=== PATIENT | female | born 1940 | race Caucasian/White ===

== ENCOUNTER 2019-10-09 16:29 | Inpatient (IN) | payer BC, MEDICARE ==
--- NOTE | 2019-10-09 16:59 | ED ---
Altered Mental Status - HPI Summary HPI Summary: This pt is a 79 Y/O F presenting to [facility] with a CC of weakness that began this morning. She states that she fell 3 times prior to arrival and states that her R leg has been giving out for the past 2 years. She states that she slid on the floors of her house which she reports are unusually slick. She states that she was unable to life herself up on the third fall. She reports that she gets lightheaded and has chest palpitations with associated SOB. She states that her symptoms arent constant. She does report that she has pain in her R hip that has been intermittent for a couple of years. She also states a cough that is brought on by allergies that began 2 years ago. Pt denies any fever, chills, erythema of eyes, sore throat, abdominal pain, N/V, dysuria, hematuria, myalgia , edema, rash, or dizziness. She states that she has no known aggravating or alleviating factors and reports that her mother of a heart attack when she was 69. - History Of Current Complaint Chief Complaint: EDWeakness Stated Complaint: LEG WEAKNESS, AND AFIB PER EMS Time Seen by Provider: 10/09/19 16:53 Hx Obtained From: Patient Last Known Well Date: 10/08/2019 Onset/Duration: Unknown, Still Present Timing: Constant Severity Initially: Moderate Severity Currently: Moderate Character: Lethargy Aggravating Factor(s): Unknown Alleviating Factor(s): Unknown Associated Signs And Symptoms: Positive: Negative - fever, chills, erythema of eyes, sore throat, abdominal pain, N/V, dysuria, hematuria, myalgia, edema, rash , or dizziness., Weakness. Negative: Nausea, Vomiting, Fever - Allergies/Home Medications Allergies/Adverse Reactions: Allergies Allergy/AdvReac Type Severity Reaction Status Date / Time No Known Allergies Allergy See Comment Verified 10/09/19 16:44 Home Medications: Home Medications Hydrochlorothiazide TAB* [Hydrodiuril TAB*] 25 mg PO DAILY 10/09/19 [History Confirmed 10/09/19] Omeprazole (Nf) [Prilosec (NF)] 40 mg PO DAILY 10/09/19 [History Confirmed 10/08] Valsartan TAB* [Diovan TAB*] 320 mg PO DAILY 10/09/19 [History Confirmed ] PMH/Surg Hx/FS Hx/Imm Hx Previously Healthy: Yes Endocrine/Hematology History: Denies: Hx Diabetes Cardiovascular History: Denies: Hx Hypertension, Hx Myocardial Infarction Infectious Disease History: No Infectious Disease History: Denies: Traveled Outside the [place] in Last 30 Days - Family History Known Family History: Positive: Cardiac Disease - mother - Social History Occupation: Retired Lives: With Family Alcohol Use: None Hx Substance Use: No Substance Use Type: Reports: None Hx Tobacco Use: No Smoking Status (MU): Never Smoked Tobacco Review of Systems Negative: Fever, Chills Negative: Erythema Negative: Sore Throat Positive: Palpitations, Chest Pain Positive: Shortness Of Breath, Cough Negative: Abdominal Pain, Vomiting, Nausea Negative: dysuria, hematuria Positive: Other - R hip pain . Negative: Myalgia, Edema Neurological/Mental Status: Negative - Dizziness All Other Systems Reviewed And Are Negative: Yes Physical Exam Triage Information Reviewed: No Vital Signs On Initial Exam: Initial Vitals Temp Pulse Resp BP Pulse Ox 98.8 F 106 17 191/121 97 10/09/19 16:32 10/09/19 16:32 10/09/19 16:32 10/09/19 16:32 10/09/19 16:32 Vital Signs Reviewed: No Procedures - Sedation Patient Received Moderate/Deep Sedation with Procedure: No Diagnostics - Vital Signs Vital Signs Temp Pulse Resp BP Pulse Ox 10/09/19 16:49 113 25 192/98 97 10/09/19 16:44 103 20 191/121 97 10/09/19 16:42 8 10/09/19 16:32 98.8 F 106 17 191/121 97 - Laboratory Result Diagrams: 10/09/19 17:46 10/09/19 17:40 Lab Statement: Any lab studies that have been ordered have been reviewed, and results considered in the medical decision making process. - CT Brain CT CT Interpretation Completed By: Radiologist Summary of CT Findings: Chronic findings as described above without CT apparent acute intracranial abnormality. ED physician has reviewed this report. - EKG 1810 Cardiac Rate: NL - 94 BPM EKG Rhythm: Sinus Rhythm ST Segment: Normal Ectopy: None Summary of EKG Findings: Normal sinus rhythm at 94 bpm, normal NE, normal QRS, normal QTc, normal axis, normal ST, normal T-waves, normal EKG. Interpreted by Dr. Santoyo at 1813 10/09/2019. Altered Mental Statu Course/Dx - Course Course Of Treatment: This pt is a 79 Y/O F presenting to [facility] with a CC of weakness that began this morning. She states that she fell 3 times prior to arrival and states that her R leg has been giving out for the past 2 years. She states that she slid on the floors of her house which she reports are unusually slick. She states that she was unable to life herself up on the third fall. She reports that she gets lightheaded and has chest palpitations with associated SOB. She states that her symptoms arent constant. She does report that she has pain in her R hip that has been intermittent for a couple of years. She also states a cough that is brought on by allergies that began 2 years ago. Her PE found that she her R leg was weaker than her L and drifted before a 5 second count. The pt's daughter was contacted and she stated that her mother has had issues with pojecting accurate time frames to providers in the past. Her daughter also stated that she was attempting to have the pt evaluated for mental status changes for the past couple months without good effect. EKG at 1810 found a Normal sinus rhythm at 94 bpm, normal NE, normal QRS, normal QTc, normal axis, normal ST, normal T-waves, normal EKG. Interpreted by Dr. aSntoyo at 1813 10/09/2019. Pt's troponin is a .15. She will be admitted by Dr. Nicolas to [facility] with a Dx of Elevated troponin, leg weakness, AMS, and frequent falls. - Diagnoses Provider Diagnoses: Frequent falls, AMS (altered mental status), Leg weakness, Elevated troponin - Provider Notifications Discussed Care Of Patient With: Craig Nicolas Time Discussed With Above Provider: 21:05 Instructed by Provider To: Admit As Inpatient Admit/Transition Orders Completed By ED Provider: Yes Discharge ED - Sign-Out/Discharge Documenting (check all that apply): Patient Departure - admitted - Discharge Plan Condition: Good Disposition: ADMITTED TO [facility] Referrals: Melvin Mai MD [Primary Care Provider] - - Attestation Statements Document Initiated by Scribe: Yes Documenting Scribe: Bud Donovan Provider For Whom Scribe is Documenting (Include Credential): Himanshu Santoyo MD Scribe Attestation: Bud Luna, scribed for Himanshu Santoyo MD on 10/09/19 at 2054. Status of Scribe Document: Ready
[2019-10-09 17:55] LABS: ABS Basophils 0.1 10^3/ul (0-0.2); ABS Lymphocytes 1.3 10^3/ul (1.0-4.8); ABS Monocytes 0.7 10^3/ul (0-0.8); ABS Neutrophils 12.2 10^3/ul (1.5-7.7); Eosinophil % 0.1 %; Hematocrit 44 % (35-47); Hemoglobin 15.3 g/dL (12.0-16.0); Lymphocyte % 8.9 %; Mean Corpuscular HGB Conc 35 g/dL (31-36); Mean Corpuscular Hemoglobin 30 pg (27-31); Mean Corpuscular Volume 87 fL (80-97); Mean Platelet Volume 7.8 fL (7.4-10.4); Nucleated Red Blood Cells % 0.1; Platelet Count 297 10^3/uL (150-450); Red Blood Count 5.08 10^6 /uL (3.70-4.87); Red Cell Distribution Width 15 % (10-15); White Blood Count 14.2 10^3/uL (3.5-10.8)
[2019-10-09 18:11] LABS: ALT 28 U/L (7-52); AST 27 U/L (13-39); Albumin 4.3 g/dL (3.2-5.2); Albumin/Globulin Ratio 1.3 (1-3); Alkaline Phosphatase 82 U/L (34-104); Anion Gap 9 mmol/L (2-11); BUN/Creatinine Ratio 21.2 (8-20); Blood Urea Nitrogen 21 mg/dL (6-24); CO2 Carbon Dioxide 25 mmol/L (22-32); Calcium 11.2 mg/dL (8.6-10.3); Chloride 101 mmol/L (101-111); EGFR African American 65.5 (>60); EGFR Non-African American 54.1 (>60); Globulin 3.3 g/dL (2-4); Glucose 112 mg/dL (70-100); Magnesium 1.9 mg/dL (1.9-2.7); Potassium 3.8 mmol/L (3.5-5.0); Sodium 135 mmol/L (135-145); Total Protein 7.6 g/dL (6.4-8.9)
[2019-10-09 18:16] LABS: Troponin I 0.15 ng/mL (<0.03)
[2019-10-09 18:33] LABS: TSH (Thyroid Stimulating Horm) 2.55 mcIU/mL (0.34-5.60)
[2019-10-09] MEDS ORDERED: Iodixanol* (CONTRAST) 320 MG/ML 100 ML SDV IV ONE (18:34)
[2019-10-09] MEDS ORDERED: Atorvastatin* 80 MG TAB PO ONE (22:24)
[2019-10-10 00:18] LABS: Troponin I 0.91 ng/mL (<0.03)
[2019-10-10] MEDS ORDERED: Metoprolol Tartrate TAB* 25 MG PO ONE (00:32)
[2019-10-10] MEDS ORDERED: Aspirin 81 mg CHEW TAB* 81 MG TAB.CHEW PO ONE (00:58)
[2019-10-10 01:52] LABS: Troponin I 0.93 ng/mL (<0.03)
[2019-10-10] MEDS: Enoxaparin(*) 40 MG/0.4 ML SYR SUBCUT SCH ×2 (02:23→21:09)
[2019-10-10 05:27] LABS: ABS Basophils 0.1 10^3/ul (0-0.2); ABS Eosinophils 0.1 10^3/ul (0-0.6); ABS Lymphocytes 2.3 10^3/ul (1.0-4.8); ABS Monocytes 0.6 10^3/ul (0-0.8); ABS Neutrophils 7.4 10^3/ul (1.5-7.7); Eosinophil % 0.6 %; Hematocrit 42 % (35-47); Hemoglobin 14.4 g/dL (12.0-16.0); Lymphocyte % 21.7 %; Mean Corpuscular HGB Conc 34 g/dL (31-36); Mean Corpuscular Hemoglobin 30 pg (27-31); Mean Corpuscular Volume 87 fL (80-97); Mean Platelet Volume 7.5 fL (7.4-10.4); Nucleated Red Blood Cells % 0.1; Platelet Count 301 10^3/uL (150-450); Red Blood Count 4.81 10^6 /uL (3.70-4.87); Red Cell Distribution Width 15 % (10-15); White Blood Count 10.5 10^3/uL (3.5-10.8)
[2019-10-10 05:44] LABS: Anion Gap 7 mmol/L (2-11); Blood Urea Nitrogen 20 mg/dL (6-24); CO2 Carbon Dioxide 24 mmol/L (22-32); Calcium 10.9 mg/dL (8.6-10.3); Chloride 104 mmol/L (101-111); EGFR African American 72.2 (>60); EGFR Non-African American 59.6 (>60); Glucose 111 mg/dL (70-100); Potassium 3.6 mmol/L (3.5-5.0); Sodium 135 mmol/L (135-145)
[2019-10-10 05:50] LABS: Troponin I 0.99 ng/mL (<0.03)
[2019-10-10] MEDS ORDERED: Gadoteridol* (CONTRAST) 279.3 MG/ML 10 ML IV ONE (10:31)
[2019-10-10] MEDS: Valsartan TAB* 160 MG PO SCH (11:10)
[2019-10-10] MEDS: Aspirin 81 mg CHEW TAB* 81 MG TAB.CHEW PO SCH (11:10)
[2019-10-10] MEDS: Hydrochlorothiazide TAB* 25 MG PO SCH (11:10)
[2019-10-10] MEDS: Metoprolol Tartrate TAB* 25 MG PO SCH ×2 (11:11→20:43)
[2019-10-10] MEDS: Pantoprazole TAB * 40 MG TAB PO SCH (11:12)
[2019-10-10 12:24] LABS: Troponin I 0.65 ng/mL (<0.03)
--- NOTE | 2019-10-10 12:46 | HP ---
HISTORY AND PHYSICAL: DATE OF ADMISSION: 10/09/19 HISTORY OF PRESENT ILLNESS: This is a 79-year-old female presenting to the ED with chief complaint of weakness that began this morning and history of frequent falls. She also had a complaint that her right side has been giving out for the past 2 years. She stated that she fell on the floor of her house, which she reports was unusual, but she said it was a mechanical fall that she did not pass out and did not hit her head, but when she did fall, she was unable to lift her head up. She reported lightheadedness and chest palpitations with associated shortness of breath. They said the symptoms they are not constant and was transient. She states she ambulates with a walker at home and a cane but chose not to use it and that was why she fell. She stated that the right upper extremity and right lower extremity have been weak and sensation on this side was not the same as on the left side. It was somewhat diminished on the right. She denied drooling. Denied tingling sensation. Denied a headache, diplopia, fever, sore throat, hematuria, myalgia, or rash. There is no known aggravating factor, no alleviating factor. PAST MEDICAL HISTORY: Hypertension. PAST SURGICAL HISTORY: Cholecystectomy. HOME MEDICATIONS: Include: 1. Diovan 320 mg p.o. daily. 2. Hydrochlorothiazide 25 mg p.o. daily. ALLERGIES: No known drug allergies. FAMILY HISTORY: Mom had hypertension. Dad of lung cancer. Brother also has lung cancer. SOCIAL HISTORY: She quit smoking over 3 years ago. Rarely drinks alcohol. Denied use of illicit drugs. 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 REVIEW OF SYSTEMS: Negative for fever, chills, erythema. Negative sore throat. Positive chest pain or palpitations. Positive shortness of breath and cough. Negative abdominal pain, vomiting, nausea. Negative dysuria, hematuria. Positive right hip pain. Negative myalgia and edema. Neurological Status: Negative dizziness. The patient denied chest pain during my review of systems. PHYSICAL EXAMINATION GENERAL: Alert, awake. She does not appear to be in any acute distress. VITALS: Temperature 98.8, pulse 106, respiratory rate 17, blood pressure 191/ 121, it was initial in the ER. When I examined her, her BP was 149/77, oxygen saturation rate was 96, respiratory rate 15, heart rate 86. HEENT: Head atraumatic, normocephalic. Eyes: Extraocular muscles intact. Sclerae anicteric, not pale. Oral mucosa appears to be moist. No oropharyngeal erythema. NECK: Supple with no JVD. No thyromegaly. No lymphadenopathy. Normal range of motion. LUNGS: Clear to auscultation bilaterally. No wheezes, rales, or rhonchi. CARDIAC: Heart sounds S1, S2 heard with regular rate and rhythm and ejection systolic murmur. There were no rubs, no gallops. ABDOMEN: Soft, nontender, nondistended. Bowel sounds present in all 4 quadrants. EXTREMITIES: She is moving all 4 extremities with strength 5/5 on the left upper and lower extremities and 4/5 on the right upper and lower extremities. Sensation intact left upper and lower extremity and somewhat diminished on the right lower extremity. NEUROLOGIC: She is awake, she is alert. She knows she is in the hospital. She is not confused. Tongue is midline. Speech is clear. SKIN: Intact, dry, warm. No rashes. DIAGNOSTIC STUDIES/LAB DATA: Hematology: WBC 14.2, hemoglobin 15.3, hematocrit 44, platelet 297. Chemistry: Sodium 135, potassium 3.8, chloride 101, bicarb 25, BUN 21, creatinine 0.99, glucose 101.2, calcium 11.2, magnesium 1.9. Total bilirubin 0.5, AST 27, ALT 28, alkaline phosphatase 82. Troponin 0.15. Total protein 7.6, albumin 4.3, globulin 3.3. TSH 2.55. Lactic acid 1.7. Repeat troponin 0.91. Clinical Practice Consultant was informed. He advised to start the patient on baby aspirin and low-dose statins in view of no history of chest pain and no acute EKG changes. CT findings: The only finding with our CT, apparent acute intracranial abnormality. EKG: Normal sinus rhythm and 94 beats per minute. Normal MS, normal QRS, normal QT, normal axis, normal ST, and normal T waves. ASSESSMENT AND PLAN: The patient is a 79-year-old female presenting with chief complaint of weakness and frequent falls as well as right-sided weakness, which have been ongoing for the past 2 years and shortness of breath. The patient will be admitted to the medical floor telemetry unit. For the shortness of breath and weakness, the patient started on oxygen therapy in the ER. Shortness of breath resolved. We will monitor cardiac enzymes. Cardiology consult. For elevated troponin, as above we will trend troponin. Nitro paste per protocol with chest pain. For right-sided weakness, I believe this patient might have had stroke in the past without knowing it. CT study revealed no acute intracranial abnormality. I will request for MRI and Neurology consult. We will start the patient on statin to prevent secondary stroke. The patient may also benefit from SSRI to improve motor function and for anxiety and depression associated with stroke. For hypertension, the patient will continue on home meds with holding parameters. We will monitor electrolytes, BMP, repeat electrolytes, and fluids as needed. Follow up Cardiology. Code status, full code. DVT prophylaxis, Lovenox. GI prophylaxis, PPI. TIME SPENT: Time spent on this admission 60 minutes, greater than half of that time was spent [id number] with the patient obtaining my history and physical. The other half of the time was spent going over the plan of care with the patient and implementing plan of care. Thank you very much for the opportunity to partake in the healthcare needs of this epi lady. [id number]/CPS #: [id number] ANDRAE
--- NOTE | 2019-10-10 15:14 | CONS ---
CC: Hospitalist Service; Dr. Garg CARDIOLOGY CONSULT: DATE OF CONSULT: 10/10/19 HISTORY OF PRESENT ILLNESS: I was asked by Hospitalist Service to see this 79-year- old female patie nt who presented to the emergency room by the ambulance team after she had a few days weakness in her right upper and lower extremities. The cardiology consult was further requested as the patient init ially was noticed to have mildly elevated troponin at 0.15 and then it did peak at 0.99 and then alth ough all through the patient was chest pain free. The patient had no history of coronary artery dise ase, no history of myocardial infarction, and cardiology consult was further requested. Of notice, t he patient did get a CTA of the head that was done on 10/09/19 and that was reported to have no acute findings. However, the patient was seen by Neurology and did have a brain MRI, it was just done actu ally yesterday and the findings are consistent with 3 acute foci of infarction involving the left bas al ganglia and subcortical white matter tracts of the left temporal lobe, so, there was an acute infa rction, there was no bleed. The patient gives no history of fever, no chills, no nausea, no vomiting, no hematochezia, no skin ra sh, no abdominal pain, no palpitation, no tachycardia, no syncope. She had been having some weakness for a few days and she had been falling actually in the house. She gives no double vision, no diplo marietta, no sore throat, no hematuria or myalgia. PAST MEDICAL HISTORY: Includes: 1. Systemic arterial hypertension. 2. Hyperlipidemia. PAST SURGICAL HISTORY: Includes cholecystectomy. MEDICATIONS: As an outpatient include: 1. Diovan 320 mg daily. 2. Hydrochlorothiazide 25 mg daily. As an inpatient: 1. Aspirin 81 mg daily. 2. Lipitor 40 mg daily. 3. Lovenox 40 mg subcutaneous q.24 hours. 4. Hydrochlorothiazide 25 mg daily. 5. Metoprolol 12.5 mg q.12 hours. 6. Pantoprazole 40 mg daily. 7. Diovan 320 mg daily. ALLERGIES: No known allergies. FAMILY HISTORY: No family history of premature CAD. SOCIAL HISTORY: She used to smoke. She quit about 3 years ago. She rarely drinks alcohol. No hist ory of illicit drug use. REVIEW OF SYSTEMS: Review of all other systems essentially is negative. PHYSICAL EXAM: On exam, she is awake, alert, and oriented. She is not in acute distress. Her vital s include blood pressure of 139/67, pulse 68, she is in sinus rhythm, temperature 97.6, respiratory r ate 20. Head and Neck Exam: Normocephalic, atraumatic head. Ears, nose, and throat essentially brandee ign. Neck supple. JVP is not elevated. No carotid bruits. No masses in the neck is appreciated. Chest: Clear to auscultation. No rales. No wheezes. No added sounds appreciated. Heart: Normal. Regular S1, S2. No added sounds. No gallops. No rubs. No significant murmurs. Abdomen: Benign. Soft. Positive bowel sounds. Extremities: No edema. No cyanosis. No clubbing. Skin exam is nixon l. Psych: Normal affect and mood. 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 DIAGNOSTIC STUDIES/LAB DATA: Her labs showed the following: Sodium 135, potassium 3.6, chloride 104 , total CO2 of 24, BUN 20, creatinine 0.91, magnesium 2. Troponin as described. TSH 2.55. White bl ood cell 10.5, hemoglobin 14.4, hematocrit 42, and platelets 301. EKG showed the patient from today to have normal sinus rhythm, nonspecific borderline ST depressions in V2, V3, V4, V5. IMPRESSION: The patient is a 79-year-old female with: 1. Acute ischemic cerebrovascular accident as described with weakness of the right upper and lower e xtremities. 2. Ruled in for Mcp-[id number] myocardial infarction by mildly elevated troponin. She is chest pa in free. 3. Systemic arterial hypertension. 4. Hyperlipidemia. 5. Remote history of tobacco consumption. 6. Abnormal EKG as described. 7. Hypokalemia. PLAN: I discussed this patient with the Hospitalist Service. At the present time, she appears to be hemodynamically stable from cardiac standpoint. She had no active symptoms of chest pain. Her trop onin already peaked. She might be elevated. She had no definite ST elevation by her EKG. My recomm endation at the present time is to continue aspirin, statins, Lipitor, beta-dc treatment, consul t with Neurology about anticoagulation. She is already on Lovenox. Watch very carefully for a bleed , and definitely, I agree with obtaining an echocardiogram tomorrow for evaluation of her left ventri cular systolic function wall motion and occult valvular disease, and with consultation with Neurology , we will arrange for noninvasive risk stratification treatment for her non-STEMI myocardial infarcti on. We will continue to observe her very closely. I answered all her concerns and questions up to h er satisfaction. Thank you very much for asking us to participate in the care of this patient. TIME SPENT: More than half of at least 60 to 65 plus minutes was [id number] in education and couns eling mode explaining all of the above and answering all her concerns and questions up to her satisfa ction. [id number]/CPS #: [id number]
--- NOTE | 2019-10-10 18:17 | PN ---
Subjective Date of Service: 10/10/19 Interval History: Patient assessed this morning with attending. Patient reports she has had left leg weakness for many years, but yesterday at approx 1200 she started to have right upper arm weakness also. Patient denies other neurological symptoms. NIH score 6. Patient denies cp, sob, fever, palpitations, dizziness, visual disturbances, speech difficulties. Objective Active Medications: Aspirin (Aspirin 81 Mg Chew Tab*) 81 mg PO DAILY [facility] Last Admin: 10/10/19 11:10 Dose: 81 mg Atorvastatin Calcium (Lipitor*) 40 mg PO 2100 [facility] Enoxaparin Sodium (Lovenox(*)) 40 mg SUBCUT Q24H [facility] Last Admin: 10/10/19 02:23 Dose: 40 mg Hydrochlorothiazide (Hydrodiuril Tab*) 25 mg PO DAILY [facility] Last Admin: 10/10/19 11:10 Dose: 25 mg Metoprolol Tartrate (Lopressor Tab*) 12.5 mg PO Q12HR [facility] Last Admin: 10/10/19 11:11 Dose: 12.5 mg Pantoprazole Sodium (Protonix Tab*) 40 mg PO DAILY [facility] Last Admin: 10/10/19 11:12 Dose: 40 mg Valsartan (Diovan Tab*) 320 mg PO DAILY [facility] Last Admin: 10/10/19 11:10 Dose: 320 mg Vital Signs - 8 hr 10/10/19 10/10/19 11:18 15:15 Temperature 97.6 F 97.2 F Pulse Rate 68 81 Respiratory 20 16 Rate Blood Pressure 139/67 144/58 (mmHg) O2 Sat by Pulse 99 98 Oximetry Oxygen Devices in Use Now: None Appearance: Comfortable, NAD Eyes: No Scleral Icterus, PERRLA Ears/Nose/Mouth/Throat: Clear Oropharnyx, Mucous Membranes Moist Neck: NL Appearance and Movements; NL JVP Respiratory: Symmetrical Chest Expansion and Respiratory Effort, Clear to Auscultation Cardiovascular: NL Sounds; No Murmurs; No JVD, RRR, No Edema Abdominal: NL Sounds; No Tenderness; No Distention Extremities: No Clubbing, Cyanosis Skin: No Rash or Ulcers Neurological: Alert and Oriented x 3, NL Sensation, - - Right Upper and Lower Ext weak. Patient is able to hold extremities but they drift Nutrition: Taking PO's Result Diagrams: 10/10/19 05:09 10/10/19 05:09 Additional Lab and Data: Laboratory Results - last 24 hr 10/09/19 10/09/19 10/10/19 17:40 23:50 01:24 WBC RBC Hgb Hct MCV MCH MCHC RDW Plt Count MPV Neut % (Auto) Lymph % (Auto) [place] % (Auto) Eos % (Auto) Baso % (Auto) Absolute Neuts (auto) Absolute Lymphs (auto) Absolute Monos (auto) Absolute Eos (auto) Absolute Basos (auto) Absolute Nucleated RBC Nucleated RBC % APTT Sodium Potassium Chloride Carbon Dioxide Anion Gap BUN Creatinine Est GFR ( Amer) Est GFR (Non-Af Amer) BUN/Creatinine Ratio Glucose Calcium Phosphorus Magnesium Troponin I 0.15 H* 0.91 H* 0.93 H* TSH 2.55 10/10/19 10/10/19 10/10/19 05:09 05:09 11:42 WBC 10.5 RBC 4.81 Hgb 14.4 Hct 42 MCV 87 MCH 30 MCHC 34 RDW 15 Plt Count 301 MPV 7.5 Neut % (Auto) 70.8 Lymph % (Auto) 21.7 [place] % (Auto) 6.0 Eos % (Auto) 0.6 Baso % (Auto) 0.9 Absolute Neuts (auto) 7.4 Absolute Lymphs (auto) 2.3 Absolute Monos (auto) 0.6 Absolute Eos (auto) 0.1 Absolute Basos (auto) 0.1 Absolute Nucleated RBC 0.0 Nucleated RBC % 0.1 APTT Sodium 135 Potassium 3.6 Chloride 104 Carbon Dioxide 24 Anion Gap 7 BUN 20 Creatinine 0.91 Est GFR ( Amer) 72.2 Est GFR (Non-Af Amer) 59.6 BUN/Creatinine Ratio 22.0 H Glucose 111 H Calcium 10.9 H Phosphorus 3.0 Magnesium 2.0 Troponin I 0.99 H* 0.65 H* TSH 10/10/19 11:42 WBC RBC Hgb Hct MCV MCH MCHC RDW Plt Count MPV Neut % (Auto) Lymph % (Auto) [place] % (Auto) Eos % (Auto) Baso % (Auto) Absolute Neuts (auto) Absolute Lymphs (auto) Absolute Monos (auto) Absolute Eos (auto) Absolute Basos (auto) Absolute Nucleated RBC Nucleated RBC % APTT 42.3 H Sodium Potassium Chloride Carbon Dioxide Anion Gap BUN Creatinine Est GFR ( Amer) Est GFR (Non-Af Amer) BUN/Creatinine Ratio Glucose Calcium Phosphorus Magnesium Troponin I TSH Microbiology and Other Data: . Assess/Plan/Problems-Billing Assessment: 79 yr old female with pmh of htn presented to the ED with weakness and frequent falls - Patient Problems (1) CVA (cerebral vascular accident) Comment: - MRI revealed 3 foci of infarction in left basal ganglia and subcoritcal white matter of left temporal lobe - Dr Teran called and recommended no heparin unless absolutely necessary ( patient was also having elevated trops and ekg changed at that time) - Jeffry to see patient - Neuro checks - PT/OT - Lipid, A1c and B12 added to labs from this morning (2) Elevated troponin Comment: - Peaked at 0.99 and trended down - No symptoms of ACS (3) EKG abnormalities Comment: - Some ST depression in V3 thru V5 which improved with subsequent EKG - Again no ACS symptoms - Formwork Carpenter consulting (4) Hypertension Comment: - Cont Valsartan and HCTZ (5) DVT prophylaxis Comment: - Lovenox (6) Full code status Attending: Waqar Jacob
[2019-10-10] MEDS ORDERED: NS 0.9% 500 ML* 500 ML IV ONE (19:02)
[2019-10-10 20:04] LABS: Cholesterol 208 mg/dL; HDL Cholesterol 37.3 mg/dL; LDL Cholesterol 147 mg/dL; Triglycerides 118 mg/dL
[2019-10-10] MEDS: Atorvastatin* 40 MG TAB PO SCH (20:43)
[2019-10-10 22:33] LABS: Urine Appearance Cloudy; Urine Bilirubin Negative (Negative); Urine Blood 1+ (Negative); Urine Color Yellow; Urine Glucose Negative (Negative); Urine Ketones Negative (Negative); Urine Nitrite Negative (Negative); Urine Protein Negative (Negative); Urine Specific Gravity 1.013 (1.010-1.030); Urine Urobilinogen Negative (Negative)
[2019-10-10 22:35] LABS: Urine Bacteria Absent (Absent); Urine Red Blood Cell Trace(0-2/hpf) (Absent); Urine Squamous Epithelial Cell Present (Absent); Urine White Blood Cell 2+(11-20/hpf) (Absent)
[2019-10-11 06:41] LABS: ABS Basophils 0.1 10^3/ul (0-0.2); ABS Eosinophils 0.1 10^3/ul (0-0.6); ABS Lymphocytes 2.3 10^3/ul (1.0-4.8); ABS Monocytes 0.5 10^3/ul (0-0.8); ABS Neutrophils 4.4 10^3/ul (1.5-7.7); Eosinophil % 1.3 %; Hematocrit 40 % (35-47); Hemoglobin 13.9 g/dL (12.0-16.0); Lymphocyte % 30.8 %; Mean Corpuscular HGB Conc 35 g/dL (31-36); Mean Corpuscular Hemoglobin 30 pg (27-31); Mean Corpuscular Volume 86 fL (80-97); Mean Platelet Volume 7.9 fL (7.4-10.4); Nucleated Red Blood Cells % 0.1; Platelet Count 270 10^3/uL (150-450); Red Blood Count 4.67 10^6 /uL (3.70-4.87); Red Cell Distribution Width 15 % (10-15); White Blood Count 7.4 10^3/uL (3.5-10.8)
[2019-10-11 06:42] LABS: INR 1.1 (0.82-1.09)
[2019-10-11 06:59] LABS: BUN/Creatinine Ratio 21.9 (8-20); Calcium 10.5 mg/dL (8.6-10.3); EGFR African American 67.8 (>60); EGFR Non-African American 56.1 (>60); Magnesium 1.9 mg/dL (1.9-2.7); Potassium 3.6 mmol/L (3.5-5.0)
[2019-10-11] MEDS ORDERED: Perflutren Lipid Microsphere* 3 ML VIAL ONE (09:40)
[2019-10-11] MEDS: Valsartan TAB* 160 MG PO SCH (10:35)
[2019-10-11] MEDS: Metoprolol Tartrate TAB* 25 MG PO SCH ×2 (10:36→21:17)
[2019-10-11] MEDS: Pantoprazole TAB * 40 MG TAB PO SCH (10:39)
[2019-10-11] MEDS: Aspirin 81 mg CHEW TAB* 81 MG TAB.CHEW PO SCH (10:39)
[2019-10-11] MEDS: Hydrochlorothiazide TAB* 25 MG PO SCH (10:39)
[2019-10-11] MEDS: Clopidogrel TAB* 75 MG PO SCH (10:39)
[2019-10-11] MEDS ORDERED: NS 0.9% 500 ML* 500 ML IV SCH (11:00)
[2019-10-11] MEDS ORDERED: NS 0.9% 500 ML* 500 ML IV ONE (11:15)
--- NOTE | 2019-10-11 12:34 | ECHO ---
*[facility]* [place] [address] Fax #: [phone] Transthoracic Echocardiogram Patient: Isabela Miramontes : 1940 Study Date: 10/11/2019 Age: 79 Gender: F HR: 72 bpm Height: 62 in /157.5 cm BSA: 1.69 m^2 Weight: 149.7 lb /68 kg BMI: 27.4 kg/m^2 *Faculty Physician: * Erica Hutson [facility] *Referring Physician: * Minnie Alvarez *Reading Physician: * Arie Garg MD Indications: TIA. Elevated troponin. History: Risk factors: Former tobacco use. Hypertension. Dyslipidemia. Conclusions Summary: - Left ventricle: The cavity size is below normal. Wall thickness is mildly increased. Systolic function is normal. The estimated ejection fraction is 60-65%. Wall motion is normal; there are no regional wall motion abnormalities. Doppler parameters are consistent with abnormal left ventricular relaxation (grade 1 diastolic dysfunction). - Atrial septum: A PFO is not demonstrated by color Doppler or agitated saline contrast. No obvious shunt, with poor quality apical views. - Mitral valve: There is mild regurgitation. - Aortic valve: There is moderate regurgitation. - Tricuspid valve: There is trace to mild regurgitation. - Aortic root: The aortic root is mild dilated. - Ascending aorta: The ascending aorta is mildly dilated. - No previous echocardiogram available. Study data: Transthoracic echocardiogram. Procedure: Transthoracic echocardiography was performed. Image quality was suboptimal. Intravenous Definity , 3 mlswas administered. Complete 2D, spectral Doppler, and color flow Doppler. Location: Bedside. Patient status: Inpatient. Patient room number: 448-01. Rhythm: Normal sinus rhythm with PAC's. Findings Left ventricle: The cavity size is below normal. Wall thickness is mildly increased. There is a prominent septal knuckle measuring 1.4 cm. Systolic function is normal. The estimated ejection fraction is 60-65%. Wall motion is normal; there are no regional wall motion abnormalities. Doppler parameters are consistent with abnormal left ventricular relaxation (grade 1 diastolic dysfunction). Right ventricle: The cavity size is normal. Systolic function is normal. Systolic pressure is within the normal range. Ventricular septum: The interventricular septum appears dyssynchronous. Left atrium: The atrium is normal in size. Right atrium: The atrium is normal in size. Atrial septum: A PFO is not demonstrated by color Doppler or agitated saline contrast. No obvious shunt, with poor quality apical views. Images 95 and 96. Mitral valve: The leaflets are mildly thickened. There is no evidence of stenosis. There is mild regurgitation. Aortic valve: The valve is trileaflet. The leaflets are mildly thickened. There is no evidence of stenosis. There is moderate regurgitation. Tricuspid valve: The leaflets are normal thickness. There is no evidence of stenosis. There is trace to mild regurgitation. Pulmonic valve: The leaflets are normal thickness. There is no evidence of stenosis. There is trace regurgitation. Aorta: Aortic root: The aortic root is mild dilated. Ascending aorta: The ascending aorta is mildly dilated. Aortic arch: The aortic arch is appears normal. Pericardium: A prominent pericardial fat pad is present. There is no significant pericardial effusion. Pulmonary arteries: The main pulmonary artery is normal-sized. Systolic pressure is within the normal range. Systemic veins: Inferior vena cava: The vessel is normal in size. There is (>= 50%) respiratory change in the IVC dimension. Measurements Left ventricle Value Ref Aortic valve Value Ref FANNY, LAX (L) 3.1 cm 3.8 - 5.2 Jono diam, ED 1.9 cm ----- ESD, LAX (L) 2.0 cm 2.2 - 3.5 Peak v, S 1.17 m/sec ----- FS, LAX 35 % 27 - 45 VTI, S 22.7 cm ----- PW, ED, LAX (H) 1.1 cm 0.6 - 0.9 Mean grad, S 3.0 mm Hg ----- FS 35 % 27 - 45 Peak grad, S 5.0 mm Hg ----- Mid-wall FS 9 % LVOT/AV, VTI ratio 0.79 ----- PW, ED (H) 1.1 cm 0.6 - 0.9 DWAIN, VTI 2.49 cm^2 ----- E', lat jono, TDI (L) 7.6 cm/sec >=10.0 DWAIN, Vmax 2.53 cm^2 --- -- E/e', lat jono, 7 AR peak v 3.38 m/sec ----- TDI AR PHT 634 ms ----- E', med jono, TDI (L) 4.4 cm/sec >=7.0 AR peak grad 46 mm Hg --- -- E/e', med jono, 12 TDI Mitral valve Value Ref E', avg, TDI 6.0 cm/sec Peak E 0.54 m/sec ----- E/e', avg, TDI 9 <=14 Peak A 0.95 m/sec --- -- Decel time 229 ms ----- LVOT Value Ref Peak E/A ratio 0.6 ----- Diam, S 2.00 cm Area 3.1 cm^2 Pulmonic valve Value Ref Peak sierra, S 0.94 m/sec Peak v, S 0.79 m/sec ----- VTI, S 18.0 cm Peak grad, S 2.0 mm Hg ----- Peak grad, S 4 mm Hg Mean grad, S 2 mm Hg Tricuspid valve Value Ref SV 57 ml TR peak v 2.2 m/sec <=2.8 SV/bsa 34 ml/m^2 Peak RV-RA grad, S 19 mm Hg ----- Ventricular septum Value Ref Aortic root Value Ref IVS, ED (H) 1.4 cm 0.6 - 0.9 Root diam (H) 4.1 cm <3.9 Right ventricle Value Ref Ascending aorta Value Ref FANNY, LAX 3.3 cm AAo AP diam, S 3.8 cm ----- FANNY minor ax, A4C 3.1 cm 1.9 - 3.5 mid Aortic arch Value Ref Pressure, S 22 mm Hg Arch diam 2.6 cm ----- Left atrium Value Ref Decending aorta Value Ref AP dim, ES 3.20 cm 2.70 - Brian peak sierra 0.65 m/sec ----- 3.80 ML dim, A4C 3.4 cm Pulmonary artery Value Ref SI dim, A4C 4.7 cm Pressure, S 20.0 mm Hg ----- Vol/bsa, ES, 1-p (L) 10 ml/m^2 11 - 40 A4C Inferior vena cava Value Ref Vol/bsa, ES, A/L 24 ml/m^2 16 - 34 Diam 1.5 cm ----- Right atrium Value Ref SI dim, ES 4.6 cm 3.4 - 5.3 ML dim, ES, A4C 3.5 cm 2.6 - 4.4 Estimated RAP 3 mm Hg Legend: (L) and (H) klarissa values outside specified reference range. Prepared and electronically signed by Arie Garg MD 10/11/2019 12:33
--- NOTE | 2019-10-11 13:56 | CONS ---
NEUROLOGICAL CONSULTATION: DATE OF CONSULT: 10/11/19 PATIENT OF: Dr. Nicolas and IRAIDA Alvarez. HISTORY OF PRESENT ILLNESS: This is a 79-year-old woman presenting with a history of right-sided weakness. Her history is somewhat confusing. She has told different people different things. She told me that her right leg was weak for at least 2 to 3 weeks' time and others, it has been going on for 2 years and she is a little indefinite about it. She said to me that her right arm has been weak for 2 weeks, but others, she noted that it began on the day prior to admission. She has been using a walker at home for a while. She has had no visual symptoms. No headaches but she has had decreased sensation on the right side. She has had no drooling, no bowel or bladder problems. She has had no fever, sore throat, rash. She has a history of hypertension. She is status post cholecystectomy. MEDICATIONS AT HOME: Include: 1. Diovan 320 mg daily. 2. Hydrochlorothiazide 25 mg daily. ALLERGIES: She has no known drug allergies. FAMILY HISTORY: Mother has hypertension. His father of lung cancer. Brother also has lung cancer. She quit smoking 3 years ago and rarely drinks alcohol. REVIEW OF SYSTEMS: Negative in all 14 spheres other than HPI. PHYSICAL EXAM: When I saw her yesterday at about 5:30, her temperature was 97.2 , pulse 81, respirations 16, blood pressure 144/58. She was alert and oriented x3 with no visual field cuts. Cranial nerves II through XII were intact. She can lift her right arm up against gravity but did have a pronator drift on that side, but not on the left. She has 4/5 strength in the right arm and 4-/5 strength in the right leg, with increased reflexes on the right of 2 compared to 1 on the left side. Toe was upgoing on the right, downgoing on the left. She had decreased sensation to touch on the right side. [id number] was intact in keeping with her right-sided weakness. Chest: Clear. Cardiovascular : Regular rate and rhythm. Abdomen: Soft with positive bowel sounds. DIAGNOSTIC STUDIES/LAB DATA: It was an interim change from admission, so she had a repeat CT scan, which I reviewed, which showed no bleeding. I reviewed her MRI scan, which showed some extensive white matter disease as well as acute left basal ganglia and left thalamic, evidence of stroke that appears acute, seen best on DWI. There was no enhancement on contrast MRI scan. Her CTA showed no significant stenosis or abnormal blood vessels. She had a cardiac consult by Dr. Garg , who thought because of her mildly elevated troponins, she was a possible non- ST elevation myocardial infarction. EKG showed no arrhythmia. Echo has not been done yet. CBC was normal. Her INR 1.1, PTT 42. Chemistries showed normal BMP. Troponin peaked at 0.99. LDL was 147. B12 253. She had normal liver function tests. Her urine was normal other than 2+ leuk esterase, 2+ white cells. IMPRESSION AND PLAN: Isabela had a relatively acute stroke. The history is a little vague, but this may have been a series of strokes dating back a couple weeks' time, this worsening most recently. In any event, I spoke to Minnie Alvarez, anticoagulation for her MS would be at least relatively contraindicated and would have to have a very strong reason to begin anticoagulation at this point. This apparently is not a major issue at this point. Given her stroke, we are putting her on aspirin and Plavix for a 1 month period and then she will go to aspirin by itself. She has been started on Lipitor 40 mg daily. She is on subcu Lovenox and is on Diovan, hydrochlorothiazide, and Lopressor and I have asked yesterday that they do not overtreat blood pressure and to make sure that she is hydrated. Thank you for sharing her case. [id number]/[facility] #: [id number] [facility] ST[facility] CHILDREN'S HOSPITALAngie
[2019-10-11] MEDS ORDERED: Valsartan TAB* 160 MG PO SCH (14:14)
[2019-10-11] MEDS ORDERED: Tranexamic Acid 1,000 MG/10 ML SDV TOPICAL ONE (15:00)
[2019-10-11] MEDS: Chlorhexidine MOUTHWASH 0.12%* 15 ML UDC SWISH SPIT SCH ×2 (15:29→21:25)
--- NOTE | 2019-10-11 17:59 | PN ---
Subjective Date of Service: 10/11/19 Interval History: Patient reports she feels well today. Continues to have right sided weakness, but less severe then last evening. She denies cp, sob, nausea, vomiting, diarrhea. Patient had some mild bleeding from her lower front gum today. Objective Active Medications: Aspirin (Aspirin 81 Mg Chew Tab*) 81 mg PO DAILY [facility] Last Admin: 10/11/19 10:39 Dose: 81 mg Atorvastatin Calcium (Lipitor*) 40 mg PO 2100 [facility] Last Admin: 10/10/19 20:43 Dose: 40 mg Chlorhexidine Gluconate (Peridex Mouth Wash 0.12%*) 15 ml SWISH SPIT TID [facility] Last Admin: 10/11/19 15:29 Dose: 15 ml Clopidogrel Bisulfate (Plavix Tab*) 75 mg PO DAILY [facility] Last Admin: 10/11/19 10:39 Dose: 75 mg Enoxaparin Sodium (Lovenox(*)) 40 mg SUBCUT Q24H [facility] Last Admin: 10/10/19 21:09 Dose: 40 mg Metoprolol Tartrate (Lopressor Tab*) 12.5 mg PO Q12HR [facility] Last Admin: 10/11/19 10:36 Dose: 12.5 mg Pantoprazole Sodium (Protonix Tab*) 40 mg PO DAILY [facility] Last Admin: 10/11/19 10:39 Dose: 40 mg Valsartan (Diovan Tab*) 320 mg PO DAILY [facility] Vital Signs - 8 hr 10/11/19 12:36 Temperature 98.3 F Pulse Rate 66 Respiratory 20 Rate Blood Pressure 152/54 (mmHg) O2 Sat by Pulse 97 Oximetry Oxygen Devices in Use Now: None Appearance: Comfortable, NAD Eyes: No Scleral Icterus Ears/Nose/Mouth/Throat: Clear Oropharnyx, Mucous Membranes Moist, - - Bleeding from lower front gum. Poor dentation Neck: NL Appearance and Movements; NL JVP Respiratory: Symmetrical Chest Expansion and Respiratory Effort, Clear to Auscultation Cardiovascular: NL Sounds; No Murmurs; No JVD, RRR, No Edema Abdominal: NL Sounds; No Tenderness; No Distention Extremities: No Edema Skin: No Rash or Ulcers Neurological: Alert and Oriented x 3, - - RUE and RLE weakness. Able to raise both extremities but drift when holding Nutrition: Taking PO's Result Diagrams: 10/11/19 06:06 10/11/19 06:06 Additional Lab and Data: Laboratory Results - last 24 hr 10/10/19 10/10/19 10/10/19 05:09 05:09 22:15 WBC RBC Hgb Hct MCV MCH MCHC RDW Plt Count MPV Neut % (Auto) Lymph % (Auto) [place] % (Auto) Eos % (Auto) Baso % (Auto) Absolute Neuts (auto) Absolute Lymphs (auto) Absolute Monos (auto) Absolute Eos (auto) Absolute Basos (auto) Absolute Nucleated RBC Nucleated RBC % INR (Anticoag Therapy) Sodium 135 Potassium 3.6 Chloride 104 Carbon Dioxide 24 Anion Gap 7 BUN 20 Creatinine 0.91 Est GFR ( Amer) 72.2 Est GFR (Non-Af Amer) 59.6 BUN/Creatinine Ratio 22.0 H Glucose 111 H Hemoglobin A1c 5.4 Calcium 10.9 H Phosphorus 3.0 Magnesium 2.0 Troponin I 0.99 H* Triglycerides 118 Cholesterol 208 LDL Cholesterol 147 HDL Cholesterol 37.3 Vitamin B12 253 Urine Color Yellow Urine Appearance Cloudy Urine pH 6.0 Ur Specific [place] 1.013 Urine Protein Negative Urine Ketones Negative Urine Blood 1+ A Urine Nitrate Negative Urine Bilirubin Negative Urine Urobilinogen Negative Ur Leukocyte Esterase 2+ A Urine WBC (Auto) 2+(11-20/hpf) A Urine RBC (Auto) Trace(0-2/hpf) Ur Squamous Epith Cells Present A Urine Bacteria Absent Urine Glucose Negative 10/11/19 10/11/19 10/11/19 06:06 06:06 06:06 WBC 7.4 RBC 4.67 Hgb 13.9 Hct 40 MCV 86 MCH 30 MCHC 35 RDW 15 Plt Count 270 MPV 7.9 Neut % (Auto) 60.1 Lymph % (Auto) 30.8 [place] % (Auto) 6.9 Eos % (Auto) 1.3 Baso % (Auto) 0.9 Absolute Neuts (auto) 4.4 Absolute Lymphs (auto) 2.3 Absolute Monos (auto) 0.5 Absolute Eos (auto) 0.1 Absolute Basos (auto) 0.1 Absolute Nucleated RBC 0.0 Nucleated RBC % 0.1 INR (Anticoag Therapy) 1.10 H Sodium 136 Potassium 3.6 Chloride 106 Carbon Dioxide 24 Anion Gap 6 BUN 21 Creatinine 0.96 H Est GFR ( Amer) 67.8 Est GFR (Non-Af Amer) 56.1 BUN/Creatinine Ratio 21.9 H Glucose 98 Hemoglobin A1c Calcium 10.5 H Phosphorus Magnesium 1.9 Troponin I Triglycerides Cholesterol LDL Cholesterol HDL Cholesterol Vitamin B12 Urine Color Urine Appearance Urine pH Ur Specific [place] Urine Protein Urine Ketones Urine Blood Urine Nitrate Urine Bilirubin Urine Urobilinogen Ur Leukocyte Esterase Urine WBC (Auto) Urine RBC (Auto) Ur Squamous Epith Cells Urine Bacteria Urine Glucose Microbiology and Other Data: . Assess/Plan/Problems-Billing Assessment: 79 yr old female with pmh of htn presented to the ED with weakness and frequent falls - Patient Problems (1) Gum symptoms Comment: - Bleeding gums (front lower), poor dentation - Pressure and ice packs ordered. - Also liquid TXA on gauze x1 ordered - Cont peridex mouth wash (2) CVA (cerebral vascular accident) Comment: - CT ordered last evening due to increasing weakness of RUE and RLE. No acute findings. Discussed with Dr Teran. Likely stuttering stroke, therefore, bolus ordered increase BP and orders placed for flat HOB. HCTZ stopped. Diovan decreased. Cont BB to reduce risk of rebound tachycardia - MRI revealed 3 foci of infarction in left basal ganglia and subcoritcal white matter of left temporal lobe - Neuro checks - PT/OT (3) Elevated troponin Comment: - Peaked at 0.99 and trended down - No symptoms of ACS (4) EKG abnormalities Comment: - Some ST depression in V3 thru V5 which improved with subsequent EKG - Again no ACS symptoms - Certified Medical Coding Specialist consulting (5) Hypertension Comment: - Permissive HTN for stroke - Stopped HCTZ and decrease Diovan - Cont BB to reduce risk of rebound tachycardia (6) DVT prophylaxis Comment: - Lovenox (7) Full code status Attending: Waqar Jacob
[2019-10-11] MEDS: Atorvastatin* 40 MG TAB PO SCH (21:17)
[2019-10-11] MEDS: Enoxaparin(*) 40 MG/0.4 ML SYR SUBCUT SCH (21:25)
[2019-10-12] MEDS ORDERED: Valsartan TAB* 160 MG PO SCH (09:00)
[2019-10-12] MEDS: Metoprolol Tartrate TAB* 25 MG PO SCH ×2 (09:09→21:24)
[2019-10-12] MEDS: Pantoprazole TAB * 40 MG TAB PO SCH (09:09)
[2019-10-12] MEDS: Clopidogrel TAB* 75 MG PO SCH (09:09)
[2019-10-12] MEDS: Aspirin 81 mg CHEW TAB* 81 MG TAB.CHEW PO SCH (09:09)
[2019-10-12] MEDS: Chlorhexidine MOUTHWASH 0.12%* 15 ML UDC SWISH SPIT SCH ×3 (09:10→21:27)
--- NOTE | 2019-10-12 12:16 | PN ---
Subjective Date of Service: 10/12/19 Length of Stay: 3 Days Neurology is following for stroke. Interval History: Mrs. Isabela Miramontes is a 79-year-old female who presented to the ED on 2019 with right sided weakness. She informed me today that the hand has been weak for the past three weeks. She told other providers that the weakness may have started the morning of the admission. The had a mechanical fall without passing out or hitting her head. She denied any history of current chest pain or shortness of breath, but did endorse symptoms of chest palpitation on admission. The patient is aspirin naive before this stroke. Today, she is resting comfortably and is concerned about her hand weakness asking when she will be able to use it normal again. She was seen by cardiology for NSTEMI. Consult note reviewed. Labs, imaging, and other diagnostic testing: CT head without contrast 10/08: no acute intracranial abnormality. CTA head and neck without contrast: 10/08: no acute findings. MRI brain without contrast: Acute foci of infarction involving the left basal ganglia and subcortical white matter tracts of the left temporal lobe. CT head without contrast 10/09: No acute intracranial abnormality. TTE: EF 60-65%. No PFO. Review of Systems: Denied CP, SOB, or palpitations. Objective Active Medications: Aspirin (Aspirin 81 Mg Chew Tab*) 81 mg PO DAILY [facility] Last Admin: 10/12/19 09:09 Dose: 81 mg Atorvastatin Calcium (Lipitor*) 40 mg PO 2100 [facility] Last Admin: 10/11/19 21:17 Dose: 40 mg Chlorhexidine Gluconate (Peridex Mouth Wash 0.12%*) 15 ml SWISH SPIT TID [facility] Last Admin: 10/12/19 09:10 Dose: 15 ml Clopidogrel Bisulfate (Plavix Tab*) 75 mg PO DAILY [facility] Last Admin: 10/12/19 09:09 Dose: 75 mg Enoxaparin Sodium (Lovenox(*)) 40 mg SUBCUT Q24H [facility] Last Admin: 10/11/19 21:25 Dose: 40 mg Metoprolol Tartrate (Lopressor Tab*) 12.5 mg PO Q12HR [facility] Last Admin: 10/12/19 09:09 Dose: 12.5 mg Pantoprazole Sodium (Protonix Tab*) 40 mg PO DAILY [facility] Last Admin: 10/12/19 09:09 Dose: 40 mg Valsartan (Diovan Tab*) 160 mg PO DAILY [facility] Last Admin: 10/12/19 09:10 Dose: Not Given Vital Signs 10/11/19 10/11/19 10/11/19 12:36 17:29 19:34 Temperature 98.3 F 98.6 F 98 F Pulse Rate 66 77 76 Respiratory 20 20 22 Rate Blood Pressure 152/54 143/62 156/50 (mmHg) O2 Sat by Pulse 97 95 96 Oximetry 10/11/19 10/11/19 10/12/19 20:00 23:39 03:15 Temperature 98.1 F 98.3 F Pulse Rate 73 64 Respiratory 22 20 18 Rate Blood Pressure 142/68 135/67 (mmHg) O2 Sat by Pulse 96 96 Oximetry 10/12/19 10/12/19 07:59 11:17 Temperature 98 F 98.1 F Pulse Rate 66 64 Respiratory 18 22 Rate Blood Pressure 132/58 132/59 (mmHg) O2 Sat by Pulse 95 98 Oximetry Intake and Output Last 24 Hours 10/10/19 10/11/19 10/12/19 10/13/19 06:59 06:59 06:59 06:59 Intake Total 40 772 785 500 Output Total 10 20 350 250 Balance 30 752 435 250 Weight 161 lb 4.8 oz 150 lb Intake: IV Fluids 502 127 NS (0.9%) 502 127 Oral 40 270 658 500 Output: Urine 10 20 350 250 Other: Estimated Void Large Medium # Bowel Movements 1 0 Estimated Stool Amount Medium Small # Voids 1 1 Oxygen Devices in Use Now: None Neurology Exam: General: Ill appearing elderly female who looks good for stated age. HEENT: Normocephelic/atraumatic, sclera anicteric, mucous membranes moist Neck: Supple Chest: Clear to auscultation bilaterally Cardiovascular: Regular rate and rhythm without murmurs, rubs, gallops Extremities: No clubbing, cyanosis, or edema Neurological Findings: NIHSS: 5 (1 facial droop, 1 right arm drift, 1 right leg drift, 1 dysmetria, 1 dysarthria). Awake, alert, and oriented to person, place, and time. Speech: mild dysarthria. Cranial Nerve: PERRL, EOM intact, right facial droop. Motor: 4/5 to shoulder abduction, elbow flexion and extension, and hip flexion on the right. Sensation: intact to LT/PP bilaterally upper and lower extremities Deep Tendon Reflex: 2+ on the right and 1+ on the left. Extensor plantar response present on the right. Cerebellum: mild motor dysmetria to finger to nose on the right. Result Diagrams: 10/11/19 06:06 10/11/19 06:06 Additional Lab and Data: Laboratory Results - last 24 hr 10/10/19 10/10/19 10/10/19 05:09 05:09 22:15 WBC RBC Hgb Hct MCV MCH MCHC RDW Plt Count MPV Neut % (Auto) Lymph % (Auto) [place] % (Auto) Eos % (Auto) Baso % (Auto) Absolute Neuts (auto) Absolute Lymphs (auto) Absolute Monos (auto) Absolute Eos (auto) Absolute Basos (auto) Absolute Nucleated RBC Nucleated RBC % INR (Anticoag Therapy) Sodium 135 Potassium 3.6 Chloride 104 Carbon Dioxide 24 Anion Gap 7 BUN 20 Creatinine 0.91 Est GFR ( Amer) 72.2 Est GFR (Non-Af Amer) 59.6 BUN/Creatinine Ratio 22.0 H Glucose 111 H Hemoglobin A1c 5.4 Calcium 10.9 H Phosphorus 3.0 Magnesium 2.0 Troponin I 0.99 H* Triglycerides 118 Cholesterol 208 LDL Cholesterol 147 HDL Cholesterol 37.3 Vitamin B12 253 Urine Color Yellow Urine Appearance Cloudy Urine pH 6.0 Ur Specific [place] 1.013 Urine Protein Negative Urine Ketones Negative Urine Blood 1+ A Urine Nitrate Negative Urine Bilirubin Negative Urine Urobilinogen Negative Ur Leukocyte Esterase 2+ A Urine WBC (Auto) 2+(11-20/hpf) A Urine RBC (Auto) Trace(0-2/hpf) Ur Squamous Epith Cells Present A Urine Bacteria Absent Urine Glucose Negative 10/11/19 10/11/19 10/11/19 06:06 06:06 06:06 WBC 7.4 RBC 4.67 Hgb 13.9 Hct 40 MCV 86 MCH 30 MCHC 35 RDW 15 Plt Count 270 MPV 7.9 Neut % (Auto) 60.1 Lymph % (Auto) 30.8 [place] % (Auto) 6.9 Eos % (Auto) 1.3 Baso % (Auto) 0.9 Absolute Neuts (auto) 4.4 Absolute Lymphs (auto) 2.3 Absolute Monos (auto) 0.5 Absolute Eos (auto) 0.1 Absolute Basos (auto) 0.1 Absolute Nucleated RBC 0.0 Nucleated RBC % 0.1 INR (Anticoag Therapy) 1.10 H Sodium 136 Potassium 3.6 Chloride 106 Carbon Dioxide 24 Anion Gap 6 BUN 21 Creatinine 0.96 H Est GFR ( Amer) 67.8 Est GFR (Non-Af Amer) 56.1 BUN/Creatinine Ratio 21.9 H Glucose 98 Hemoglobin A1c Calcium 10.5 H Phosphorus Magnesium 1.9 Troponin I Triglycerides Cholesterol LDL Cholesterol HDL Cholesterol Vitamin B12 Urine Color Urine Appearance Urine pH Ur Specific [place] Urine Protein Urine Ketones Urine Blood Urine Nitrate Urine Bilirubin Urine Urobilinogen Ur Leukocyte Esterase Urine WBC (Auto) Urine RBC (Auto) Ur Squamous Epith Cells Urine Bacteria Urine Glucose Microbiology and Other Data: . Assessment/Plan Mrs. Isabela Miramontes is a 79-year-old female who has a history of hypertension who presented with right sided weakness. 1. Acute lacunar infarction involving the left MCA vascular territory. The mechanism of the stroke is most likely cardiovascular disease. She was not a candidate for alteplase therapy as she presented outside the therapeutic window. She was not a candidate for mechanical thrombectomy because she did not have large vessel occlusion on CTA. NIHSS: 5 2. NSTEMI 3. Lower range of B12 level. 4. Dyslipidemia. Recommendations: DAPT with aspirin 81 mg and Plavix 75 mg daily for 21 days, discontinue Plavix on 11/11/2019. Continue atorvastatin 40 mg nightly. Start cyanocobalamin 500 mcg daily. DVT prophylaxis with SCDs. Stroke education completed. PT/OT/[employer]TENA[employer]IST evaluation and treatment. SBP goal: she is tolerating a normal BP range. Continue that range. She is ready for rehabilitation. I will arrange a follow-up for her to see Dr. Teran in 6-8 weeks. Please call us for any questions or concerns.
--- NOTE | 2019-10-12 19:06 | PN ---
Subjective Date of Service: 10/12/19 Interval History: Patient was very tearful, unable to verbalize what exactly was bothering her other than she was feeling overwhelmed with changes in her capabilities and dealing with her new diagnoses. Still having right sided weakness, though is able to make a fist and lift right arm somewhat to gravity only. No further gum bleeding. Denies lightheadedness, dizziness, chest pain, palpitations, abdominal pain, nausea, vomiting, issues moving bowels or bladder. Family History: Unchanged from Admission Social History: Unchanged from Admission Past Medical History: Unchanged from Admission Objective Active Medications: Aspirin (Aspirin 81 Mg Chew Tab*) 81 mg PO DAILY [facility] Last Admin: 10/12/19 09:09 Dose: 81 mg Atorvastatin Calcium (Lipitor*) 40 mg PO 2100 [facility] Last Admin: 10/11/19 21:17 Dose: 40 mg Chlorhexidine Gluconate (Peridex Mouth Wash 0.12%*) 15 ml SWISH SPIT TID [facility] Last Admin: 10/12/19 14:26 Dose: 15 ml Clopidogrel Bisulfate (Plavix Tab*) 75 mg PO DAILY [facility] Last Admin: 10/12/19 09:09 Dose: 75 mg Enoxaparin Sodium (Lovenox(*)) 40 mg SUBCUT Q24H [facility] Last Admin: 10/11/19 21:25 Dose: 40 mg Metoprolol Tartrate (Lopressor Tab*) 12.5 mg PO Q12HR [facility] Last Admin: 10/12/19 09:09 Dose: 12.5 mg Pantoprazole Sodium (Protonix Tab*) 40 mg PO DAILY [facility] Last Admin: 10/12/19 09:09 Dose: 40 mg Valsartan (Diovan Tab*) 160 mg PO DAILY [facility] Last Admin: 10/12/19 09:10 Dose: Not Given Vital Signs - 8 hr 10/12/19 10/12/19 11:17 15:25 Temperature 98.1 F 98.2 F Pulse Rate 64 75 Respiratory 22 18 Rate Blood Pressure 132/59 133/48 (mmHg) O2 Sat by Pulse 98 96 Oximetry Oxygen Devices in Use Now: None Appearance: This is a well developed older woman seen sitting up in chair after justing having worked with physical therapy. Tearful but no acute distress. Eyes: No Scleral Icterus, PERRLA Ears/Nose/Mouth/Throat: Clear Oropharnyx, Mucous Membranes Moist, - - Right sided facial droop. Neck: NL Appearance and Movements; NL JVP, Trachea Midline Respiratory: Symmetrical Chest Expansion and Respiratory Effort, Clear to Auscultation Cardiovascular: NL Sounds; No Murmurs; No JVD, RRR, No Edema Abdominal: NL Sounds; No Tenderness; No Distention Lymphatic: No Cervical Adenopathy Extremities: No Edema, No Clubbing, Cyanosis, - - Right sided weakness. Skin: No Rash or Ulcers Neurological: Alert and Oriented x 3 Lines/Tubes/Other Access: Clean, Dry and Intact Peripheral IV Result Diagrams: 10/11/19 06:06 10/11/19 06:06 Additional Lab and Data: Laboratory Results - last 24 hr 10/10/19 10/10/19 10/10/19 05:09 05:09 22:15 WBC RBC Hgb Hct MCV MCH MCHC RDW Plt Count MPV Neut % (Auto) Lymph % (Auto) [place] % (Auto) Eos % (Auto) Baso % (Auto) Absolute Neuts (auto) Absolute Lymphs (auto) Absolute Monos (auto) Absolute Eos (auto) Absolute Basos (auto) Absolute Nucleated RBC Nucleated RBC % INR (Anticoag Therapy) Sodium 135 Potassium 3.6 Chloride 104 Carbon Dioxide 24 Anion Gap 7 BUN 20 Creatinine 0.91 Est GFR ( Amer) 72.2 Est GFR (Non-Af Amer) 59.6 BUN/Creatinine Ratio 22.0 H Glucose 111 H Hemoglobin A1c 5.4 Calcium 10.9 H Phosphorus 3.0 Magnesium 2.0 Troponin I 0.99 H* Triglycerides 118 Cholesterol 208 LDL Cholesterol 147 HDL Cholesterol 37.3 Vitamin B12 253 Urine Color Yellow Urine Appearance Cloudy Urine pH 6.0 Ur Specific [place] 1.013 Urine Protein Negative Urine Ketones Negative Urine Blood 1+ A Urine Nitrate Negative Urine Bilirubin Negative Urine Urobilinogen Negative Ur Leukocyte Esterase 2+ A Urine WBC (Auto) 2+(11-20/hpf) A Urine RBC (Auto) Trace(0-2/hpf) Ur Squamous Epith Cells Present A Urine Bacteria Absent Urine Glucose Negative 10/11/19 10/11/19 10/11/19 06:06 06:06 06:06 WBC 7.4 RBC 4.67 Hgb 13.9 Hct 40 MCV 86 MCH 30 MCHC 35 RDW 15 Plt Count 270 MPV 7.9 Neut % (Auto) 60.1 Lymph % (Auto) 30.8 [place] % (Auto) 6.9 Eos % (Auto) 1.3 Baso % (Auto) 0.9 Absolute Neuts (auto) 4.4 Absolute Lymphs (auto) 2.3 Absolute Monos (auto) 0.5 Absolute Eos (auto) 0.1 Absolute Basos (auto) 0.1 Absolute Nucleated RBC 0.0 Nucleated RBC % 0.1 INR (Anticoag Therapy) 1.10 H Sodium 136 Potassium 3.6 Chloride 106 Carbon Dioxide 24 Anion Gap 6 BUN 21 Creatinine 0.96 H Est GFR ( Amer) 67.8 Est GFR (Non-Af Amer) 56.1 BUN/Creatinine Ratio 21.9 H Glucose 98 Hemoglobin A1c Calcium 10.5 H Phosphorus Magnesium 1.9 Troponin I Triglycerides Cholesterol LDL Cholesterol HDL Cholesterol Vitamin B12 Urine Color Urine Appearance Urine pH Ur Specific [place] Urine Protein Urine Ketones Urine Blood Urine Nitrate Urine Bilirubin Urine Urobilinogen Ur Leukocyte Esterase Urine WBC (Auto) Urine RBC (Auto) Ur Squamous Epith Cells Urine Bacteria Urine Glucose Microbiology and Other Data: . Assess/Plan/Problems-Billing Assessment: 79 yr old female with pmh of htn presented to the ED with weakness and frequent falls - Patient Problems (1) CVA (cerebral vascular accident) Current Visit: Yes Status: Acute Code(s): I63.9 - CEREBRAL INFARCTION, UNSPECIFIED SNOMED Code(s): 046896354 Comment: - No acute findings in brain CT. Likely had stuttering stroke. - HCTZ stopped. Diovan decreased. Cont BB to reduce risk of rebound tachycardia - MRI revealed 3 foci of infarction in left basal ganglia and subcoritcal white matter of left temporal lobe. - Neuro checks Q4H - PT/OT - Started on high intensity statin due to increased LDL. LDL goal is <70. (2) Elevated troponin Current Visit: Yes Status: Acute Code(s): R79.89 - OTHER SPECIFIED ABNORMAL FINDINGS OF BLOOD CHEMISTRY SNOMED Code(s): 903042977 Comment: - Peaked at 0.99 and trended down - No symptoms of ACS (3) Gum symptoms Current Visit: Yes Status: Acute Code(s): R19.8 - OTH SYMPTOMS AND SIGNS INVOLVING THE DGSTV SYS AND ABDOMEN SNOMED Code(s): 502693014 Comment: -No longer bleeding. (4) Hypertension Current Visit: Yes Status: Acute Code(s): I10 - ESSENTIAL (PRIMARY) HYPERTENSION SNOMED Code(s): 77205233 Comment: - Stopped HCTZ and decrease Diovan - Cont BB to reduce risk of rebound tachycardia (5) DVT prophylaxis Current Visit: Yes Status: Acute Code(s): Z29.9 - ENCOUNTER FOR PROPHYLACTIC MEASURES, UNSPECIFIED SNOMED Code(s): 055133054 Comment: - Lovenox (6) Full code status Current Visit: Yes Status: Acute Code(s): Z78.9 - OTHER SPECIFIED HEALTH STATUS SNOMED Code(s): 198098539 Status and Disposition: Dispo: Admit inpatient to . Condition: Fair. Attending: Waqar Jacob
[2019-10-12] MEDS: Atorvastatin* 40 MG TAB PO SCH (21:24)
[2019-10-12] MEDS: Enoxaparin(*) 40 MG/0.4 ML SYR SUBCUT SCH (21:29)
--- NOTE | 2019-10-12 22:58 | PN ---
Hospitalist Progress Note Date of Service: 10/12/19 Called to bedside for worsening weakness to RUE, drift noted she is 4/5 to RUE at the shoulder, bicep and tricep, and 4/5 to the finger with extension and flexion, right facial droop noted and some dysarthria, also 4/5 strength to the RLE as well at the hipflexor, patient states she feels weaker, Will obtain ct brain to assess for hemorrhagic conversion. Will lower HOB, will check BP, discussed with Dr Lugo
[2019-10-13] MEDS ORDERED: Valsartan TAB* 40 MG PO SCH (09:00)
[2019-10-13] MEDS: Metoprolol Tartrate TAB* 25 MG PO SCH ×2 (09:49→20:04)
[2019-10-13] MEDS: Aspirin 81 mg CHEW TAB* 81 MG TAB.CHEW PO SCH (09:50)
[2019-10-13] MEDS: Clopidogrel TAB* 75 MG PO SCH (09:50)
[2019-10-13] MEDS: Pantoprazole TAB * 40 MG TAB PO SCH (09:50)
[2019-10-13] MEDS: Chlorhexidine MOUTHWASH 0.12%* 15 ML UDC SWISH SPIT SCH ×3 (09:50→20:04)
[2019-10-13] MEDS ORDERED: NS 0.9% 1000 ML** 1,000 ML IV ONE (13:09)
--- NOTE | 2019-10-13 15:37 | PN ---
Subjective Date of Service: 10/13/19 Interval History: Patient revealed that her mother two weeks after having a stroke and that she has been scared that would happen to her. Overall however, she is feeling better than she did yesterday, is getting stronger. Has had no further episodes like she did last night. She described what happened last night as her right leg landy on her and then she fell asleep and woke up with a group of people including Teodoro Farrell NP, surrounding her bed. She walked further today with physical therapy than she did yesterday. Family History: Unchanged from Admission Social History: Unchanged from Admission Past Medical History: Unchanged from Admission Objective Active Medications: Aspirin (Aspirin 81 Mg Chew Tab*) 81 mg PO DAILY [facility] Last Admin: 10/13/19 09:50 Dose: 81 mg Atorvastatin Calcium (Lipitor*) 40 mg PO 2100 [facility] Last Admin: 10/12/19 21:24 Dose: 40 mg Chlorhexidine Gluconate (Peridex Mouth Wash 0.12%*) 15 ml SWISH SPIT TID [facility] Last Admin: 10/13/19 14:04 Dose: 15 ml Clopidogrel Bisulfate (Plavix Tab*) 75 mg PO DAILY [facility] Last Admin: 10/13/19 09:50 Dose: 75 mg Enoxaparin Sodium (Lovenox(*)) 40 mg SUBCUT Q24H [facility] Last Admin: 10/12/19 21:29 Dose: 40 mg Melatonin (Melatonin) 3 mg PO BEDTIME PRN PRN Reason: SLEEP Metoprolol Tartrate (Lopressor Tab*) 12.5 mg PO Q12HR [facility] Last Admin: 10/13/19 09:49 Dose: 12.5 mg Pantoprazole Sodium (Protonix Tab*) 40 mg PO DAILY [facility] Last Admin: 10/13/19 09:50 Dose: 40 mg Vital Signs - 8 hr 10/13/19 10/13/19 10/13/19 07:50 07:57 09:44 Temperature 97.5 F Pulse Rate 65 Respiratory 15 15 Rate Blood Pressure 137/59 119/59 (mmHg) O2 Sat by Pulse 97 Oximetry 10/13/19 11:21 Temperature 97.1 F Pulse Rate 62 Respiratory 14 Rate Blood Pressure 124/59 (mmHg) O2 Sat by Pulse 96 Oximetry Oxygen Devices in Use Now: None Appearance: This is a well developed female seen sitting up in a chair, no acute distress. Eyes: No Scleral Icterus, PERRLA Ears/Nose/Mouth/Throat: NL Teeth, Lips, Gums, Clear Oropharnyx, Mucous Membranes Moist Neck: NL Appearance and Movements; NL JVP, Trachea Midline, No Thyroid Enlargement, Masses Respiratory: Symmetrical Chest Expansion and Respiratory Effort, Clear to Auscultation Cardiovascular: NL Sounds; No Murmurs; No JVD, RRR, No Edema Abdominal: NL Sounds; No Tenderness; No Distention Lymphatic: No Cervical Adenopathy Extremities: No Edema, No Clubbing, Cyanosis Skin: No Rash or Ulcers, No Nodules or Sclerosis Neurological: Alert and Oriented x 3 Lines/Tubes/Other Access: Clean, Dry and Intact Peripheral IV Nutrition: Taking PO's Result Diagrams: 10/11/19 06:06 10/11/19 06:06 Additional Lab and Data: Laboratory Results - last 24 hr 10/10/19 10/10/19 10/10/19 05:09 05:09 22:15 WBC RBC Hgb Hct MCV MCH MCHC RDW Plt Count MPV Neut % (Auto) Lymph % (Auto) [place] % (Auto) Eos % (Auto) Baso % (Auto) Absolute Neuts (auto) Absolute Lymphs (auto) Absolute Monos (auto) Absolute Eos (auto) Absolute Basos (auto) Absolute Nucleated RBC Nucleated RBC % INR (Anticoag Therapy) Sodium 135 Potassium 3.6 Chloride 104 Carbon Dioxide 24 Anion Gap 7 BUN 20 Creatinine 0.91 Est GFR ( Amer) 72.2 Est GFR (Non-Af Amer) 59.6 BUN/Creatinine Ratio 22.0 H Glucose 111 H Hemoglobin A1c 5.4 Calcium 10.9 H Phosphorus 3.0 Magnesium 2.0 Troponin I 0.99 H* Triglycerides 118 Cholesterol 208 LDL Cholesterol 147 HDL Cholesterol 37.3 Vitamin B12 253 Urine Color Yellow Urine Appearance Cloudy Urine pH 6.0 Ur Specific [place] 1.013 Urine Protein Negative Urine Ketones Negative Urine Blood 1+ A Urine Nitrate Negative Urine Bilirubin Negative Urine Urobilinogen Negative Ur Leukocyte Esterase 2+ A Urine WBC (Auto) 2+(11-20/hpf) A Urine RBC (Auto) Trace(0-2/hpf) Ur Squamous Epith Cells Present A Urine Bacteria Absent Urine Glucose Negative 10/11/19 10/11/19 10/11/19 06:06 06:06 06:06 WBC 7.4 RBC 4.67 Hgb 13.9 Hct 40 MCV 86 MCH 30 MCHC 35 RDW 15 Plt Count 270 MPV 7.9 Neut % (Auto) 60.1 Lymph % (Auto) 30.8 [place] % (Auto) 6.9 Eos % (Auto) 1.3 Baso % (Auto) 0.9 Absolute Neuts (auto) 4.4 Absolute Lymphs (auto) 2.3 Absolute Monos (auto) 0.5 Absolute Eos (auto) 0.1 Absolute Basos (auto) 0.1 Absolute Nucleated RBC 0.0 Nucleated RBC % 0.1 INR (Anticoag Therapy) 1.10 H Sodium 136 Potassium 3.6 Chloride 106 Carbon Dioxide 24 Anion Gap 6 BUN 21 Creatinine 0.96 H Est GFR ( Amer) 67.8 Est GFR (Non-Af Amer) 56.1 BUN/Creatinine Ratio 21.9 H Glucose 98 Hemoglobin A1c Calcium 10.5 H Phosphorus Magnesium 1.9 Troponin I Triglycerides Cholesterol LDL Cholesterol HDL Cholesterol Vitamin B12 Urine Color Urine Appearance Urine pH Ur Specific [place] Urine Protein Urine Ketones Urine Blood Urine Nitrate Urine Bilirubin Urine Urobilinogen Ur Leukocyte Esterase Urine WBC (Auto) Urine RBC (Auto) Ur Squamous Epith Cells Urine Bacteria Urine Glucose Microbiology and Other Data: . Assess/Plan/Problems-Billing Assessment: 79 yr old female with pmh of htn presented to the ED with weakness and frequent falls - Patient Problems (1) CVA (cerebral vascular accident) Current Visit: Yes Status: Acute Code(s): I63.9 - CEREBRAL INFARCTION, UNSPECIFIED SNOMED Code(s): 579828570 Comment: - Had another episode of neurological decline last night that has since resolved. Appeared to have correlated with a drop of blood pressure. - Administered another 1L NS bolus to increase SBP above 130. - No acute findings in brain CT. Likely had stuttering stroke. - HCTZ stopped. Diovan decreased. Cont BB to reduce risk of rebound tachycardia - MRI revealed 3 foci of infarction in left basal ganglia and subcoritcal white matter of left temporal lobe. - Neuro checks Q4H - PT/OT - Started on high intensity statin due to increased LDL. LDL goal is <70. (2) Elevated troponin Current Visit: Yes Status: Acute Code(s): R79.89 - OTHER SPECIFIED ABNORMAL FINDINGS OF BLOOD CHEMISTRY SNOMED Code(s): 579142292 Comment: - Peaked at 0.99 and trended down - No symptoms of ACS - Will need an outpatient stress test. (3) Gum symptoms Current Visit: Yes Status: Acute Code(s): R19.8 - OTH SYMPTOMS AND SIGNS INVOLVING THE DGSTV SYS AND ABDOMEN SNOMED Code(s): 330567222 Comment: -No longer bleeding. (4) Hypertension Current Visit: Yes Status: Acute Code(s): I10 - ESSENTIAL (PRIMARY) HYPERTENSION SNOMED Code(s): 35831142 Comment: - Stopped HCTZ and Diovan - Cont BB to reduce risk of rebound tachycardia (5) DVT prophylaxis Current Visit: Yes Status: Acute Code(s): Z29.9 - ENCOUNTER FOR PROPHYLACTIC MEASURES, UNSPECIFIED SNOMED Code(s): 435063223 Comment: - Lovenox (6) Full code status Current Visit: Yes Status: Acute Code(s): Z78.9 - OTHER SPECIFIED HEALTH STATUS SNOMED Code(s): 505189815 Status and Disposition: Dispo: Admit inpatient to . Condition: Fair. Attending: Rhonda Colin
[2019-10-13] MEDS: Atorvastatin* 40 MG TAB PO SCH (20:04)
[2019-10-13] MEDS: Melatonin 3 MG TAB PO PRN (20:04)
[2019-10-13] MEDS: Enoxaparin(*) 40 MG/0.4 ML SYR SUBCUT SCH (22:15)
[2019-10-14] MEDS: Clopidogrel TAB* 75 MG PO SCH (08:41)
[2019-10-14] MEDS: Metoprolol Tartrate TAB* 25 MG PO SCH ×2 (08:41→20:03)
[2019-10-14] MEDS: Pantoprazole TAB * 40 MG TAB PO SCH (08:42)
[2019-10-14] MEDS: Chlorhexidine MOUTHWASH 0.12%* 15 ML UDC SWISH SPIT SCH ×3 (08:42→20:03)
[2019-10-14] MEDS: Aspirin 81 mg CHEW TAB* 81 MG TAB.CHEW PO SCH (08:44)
--- NOTE | 2019-10-14 17:38 | PN ---
Subjective Date of Service: 10/14/19 Interval History: Patient stated that she was feeling ok. No further episodes of neurological decline. Continues to have right sided weakness, uses left hand to help move arm. Assisted patient to bathroom, noted dragging of right foot, required prompting to consciously lift foot off ground. Denied lightheadedness, dizziness , chest pain, palpitations, abdominal pain, nausea, vomiting or issues moving bowel or bladder. Family History: Unchanged from Admission Social History: Unchanged from Admission Past Medical History: Unchanged from Admission Objective Active Medications: Aspirin (Aspirin 81 Mg Chew Tab*) 81 mg PO DAILY [facility] Last Admin: 10/14/19 08:44 Dose: 81 mg Atorvastatin Calcium (Lipitor*) 40 mg PO 2100 [facility] Last Admin: 10/13/19 20:04 Dose: 40 mg Chlorhexidine Gluconate (Peridex Mouth Wash 0.12%*) 15 ml SWISH SPIT TID [facility] Last Admin: 10/14/19 16:41 Dose: 15 ml Clopidogrel Bisulfate (Plavix Tab*) 75 mg PO DAILY [facility] Last Admin: 10/14/19 08:41 Dose: 75 mg Enoxaparin Sodium (Lovenox(*)) 40 mg SUBCUT Q24H [facility] Last Admin: 10/13/19 22:15 Dose: 40 mg Melatonin (Melatonin) 3 mg PO BEDTIME PRN PRN Reason: SLEEP Last Admin: 10/13/19 20:04 Dose: 3 mg Metoprolol Tartrate (Lopressor Tab*) 12.5 mg PO Q12HR [facility] Last Admin: 10/14/19 08:41 Dose: 12.5 mg Pantoprazole Sodium (Protonix Tab*) 40 mg PO DAILY [facility] Last Admin: 10/14/19 08:42 Dose: 40 mg Oxygen Devices in Use Now: None Appearance: This is a well developed woman seen sitting up in a chair, no acute distress. Eyes: No Scleral Icterus, PERRLA Ears/Nose/Mouth/Throat: Clear Oropharnyx, Mucous Membranes Moist, - - Right sided facial droop. Neck: NL Appearance and Movements; NL JVP, Trachea Midline Respiratory: Symmetrical Chest Expansion and Respiratory Effort, Clear to Auscultation Cardiovascular: NL Sounds; No Murmurs; No JVD, RRR, No Edema Abdominal: NL Sounds; No Tenderness; No Distention Lymphatic: No Cervical Adenopathy Extremities: No Edema, No Clubbing, Cyanosis Skin: No Rash or Ulcers, No Nodules or Sclerosis Neurological: Alert and Oriented x 3 Lines/Tubes/Other Access: Clean, Dry and Intact Peripheral IV Result Diagrams: 10/11/19 06:06 10/11/19 06:06 Additional Lab and Data: Laboratory Results - last 24 hr 10/10/19 10/10/19 10/10/19 05:09 05:09 22:15 WBC RBC Hgb Hct MCV MCH MCHC RDW Plt Count MPV Neut % (Auto) Lymph % (Auto) [place] % (Auto) Eos % (Auto) Baso % (Auto) Absolute Neuts (auto) Absolute Lymphs (auto) Absolute Monos (auto) Absolute Eos (auto) Absolute Basos (auto) Absolute Nucleated RBC Nucleated RBC % INR (Anticoag Therapy) Sodium 135 Potassium 3.6 Chloride 104 Carbon Dioxide 24 Anion Gap 7 BUN 20 Creatinine 0.91 Est GFR ( Amer) 72.2 Est GFR (Non-Af Amer) 59.6 BUN/Creatinine Ratio 22.0 H Glucose 111 H Hemoglobin A1c 5.4 Calcium 10.9 H Phosphorus 3.0 Magnesium 2.0 Troponin I 0.99 H* Triglycerides 118 Cholesterol 208 LDL Cholesterol 147 HDL Cholesterol 37.3 Vitamin B12 253 Urine Color Yellow Urine Appearance Cloudy Urine pH 6.0 Ur Specific [place] 1.013 Urine Protein Negative Urine Ketones Negative Urine Blood 1+ A Urine Nitrate Negative Urine Bilirubin Negative Urine Urobilinogen Negative Ur Leukocyte Esterase 2+ A Urine WBC (Auto) 2+(11-20/hpf) A Urine RBC (Auto) Trace(0-2/hpf) Ur Squamous Epith Cells Present A Urine Bacteria Absent Urine Glucose Negative 10/11/19 10/11/19 10/11/19 06:06 06:06 06:06 WBC 7.4 RBC 4.67 Hgb 13.9 Hct 40 MCV 86 MCH 30 MCHC 35 RDW 15 Plt Count 270 MPV 7.9 Neut % (Auto) 60.1 Lymph % (Auto) 30.8 [place] % (Auto) 6.9 Eos % (Auto) 1.3 Baso % (Auto) 0.9 Absolute Neuts (auto) 4.4 Absolute Lymphs (auto) 2.3 Absolute Monos (auto) 0.5 Absolute Eos (auto) 0.1 Absolute Basos (auto) 0.1 Absolute Nucleated RBC 0.0 Nucleated RBC % 0.1 INR (Anticoag Therapy) 1.10 H Sodium 136 Potassium 3.6 Chloride 106 Carbon Dioxide 24 Anion Gap 6 BUN 21 Creatinine 0.96 H Est GFR ( Amer) 67.8 Est GFR (Non-Af Amer) 56.1 BUN/Creatinine Ratio 21.9 H Glucose 98 Hemoglobin A1c Calcium 10.5 H Phosphorus Magnesium 1.9 Troponin I Triglycerides Cholesterol LDL Cholesterol HDL Cholesterol Vitamin B12 Urine Color Urine Appearance Urine pH Ur Specific [place] Urine Protein Urine Ketones Urine Blood Urine Nitrate Urine Bilirubin Urine Urobilinogen Ur Leukocyte Esterase Urine WBC (Auto) Urine RBC (Auto) Ur Squamous Epith Cells Urine Bacteria Urine Glucose Microbiology and Other Data: . Assess/Plan/Problems-Billing Assessment: 79 yr old female with pmh of htn presented to the ED with weakness and frequent falls - Patient Problems (1) CVA (cerebral vascular accident) Current Visit: Yes Status: Acute Code(s): I63.9 - CEREBRAL INFARCTION, UNSPECIFIED SNOMED Code(s): 966183059 Comment: - No new neuro deficits. Will restart diovan tomorrow. Will continue to hold HCTZ. - No acute findings in brain CT. Likely had stuttering stroke. - Cont BB to reduce risk of rebound tachycardia. - MRI revealed 3 foci of infarction in left basal ganglia and subcoritcal white matter of left temporal lobe. - Neuro checks Q4H - PT/OT - Started on high intensity statin due to increased LDL. LDL goal is <70. (2) Elevated troponin Current Visit: Yes Status: Acute Code(s): R79.89 - OTHER SPECIFIED ABNORMAL FINDINGS OF BLOOD CHEMISTRY SNOMED Code(s): 386146374 Comment: - Peaked at 0.99 and trended down - No symptoms of ACS - Will need an outpatient stress test. (3) Gum symptoms Current Visit: Yes Status: Acute Code(s): R19.8 - OTH SYMPTOMS AND SIGNS INVOLVING THE DGSTV SYS AND ABDOMEN SNOMED Code(s): 121710669 Comment: -No longer bleeding. (4) Hypertension Current Visit: Yes Status: Acute Code(s): I10 - ESSENTIAL (PRIMARY) HYPERTENSION SNOMED Code(s): 91485485 Comment: - Stopped HCTZ and Diovan, though will restart diovan in the am. - Cont BB to reduce risk of rebound tachycardia (5) DVT prophylaxis Current Visit: Yes Status: Acute Code(s): Z29.9 - ENCOUNTER FOR PROPHYLACTIC MEASURES, UNSPECIFIED SNOMED Code(s): 392484774 Comment: - Lovenox (6) Full code status Current Visit: Yes Status: Acute Code(s): Z78.9 - OTHER SPECIFIED HEALTH STATUS SNOMED Code(s): 155495305 Status and Disposition: Dispo: Admit inpatient to . Condition: Fair. Attending: Rhonda Colin
[2019-10-14] MEDS: Atorvastatin* 40 MG TAB PO SCH (20:03)
[2019-10-14] MEDS: Melatonin 3 MG TAB PO PRN (20:03)
[2019-10-14] MEDS ORDERED: Acetaminophen TAB* 325 MG PO PRN (20:35)
[2019-10-14] MEDS: Enoxaparin(*) 40 MG/0.4 ML SYR SUBCUT SCH (21:22)
[2019-10-15] MEDS ORDERED: Valsartan TAB* 160 MG PO SCH (09:00)
[2019-10-15] MEDS: Metoprolol Tartrate TAB* 25 MG PO SCH (09:06)
[2019-10-15] MEDS: Aspirin 81 mg CHEW TAB* 81 MG TAB.CHEW PO SCH (09:08)
[2019-10-15] MEDS: Clopidogrel TAB* 75 MG PO SCH (09:08)
[2019-10-15] MEDS: Pantoprazole TAB * 40 MG TAB PO SCH (09:08)
--- NOTE | 2019-10-15 12:54 | DS ---
CC: Dr. Melvin Mai; Dr. Rhonda Colin * DISCHARGE SUMMARY: DATE OF ADMISSION: 10/09/19 DATE OF DISCHARGE: 10/15/19 PRIMARY CARE PROVIDER: Dr. Melvin Mai. MY ATTENDING WHILE IN THE HOSPITAL: Dr. Rhonda Colin.* (DICTATED BY COTY CONTRERAS) PRIMARY DISCHARGE DIAGNOSES: 1. Acute multifocal cerebrovascular accident with resultant right-sided weakness [id number] myocardial infarction, possibly related to demand ischemia. 2. Borderline B12 deficient. 3. Hypercalcemia. SECONDARY DISCHARGE DIAGNOSIS: Hypertension. MEDICATIONS AT DISCHARGE: 1. Valsartan 160 mg p.o. daily. 2. Omeprazole 40 mg p.o. daily. 3. Aspirin 81 mg p.o. daily. 4. Lipitor 40 mg p.o. daily. 5. Clopidogrel 75 mg p.o. daily. 6. Metoprolol succinate 25 mg p.o. daily. 7. Cyanocobalamin 500 mcg p.o. daily. New medications at discharge: 1. Aspirin. 2. Lipitor. 3. Plavix. 4. Metoprolol. 5. Cyanocobalamin. Medications discontinued at discharge: 1. Valsartan 320 mg p.o. daily. 2. Hydrochlorothiazide 25 mg p.o. daily. STUDIES DONE WHILE IN THE HOSPITAL: Brain CT from 10/09/19 read as chronic findings described above CT appearance of acute intracranial abnormality, those findings are [id number] periventricular subcortical white matter hypoattenuation most consistent with chronic small vessel disease. EKG from 10/09/19 read as normal sinus rhythm and minimal ST segment depression in V4, V5. No ST segment elevation. T-wave inversion in aVL, likely left atrial enlargement. No left ventricle hypertrophy. Left axis deviation. No other hypertrophy or enlargement. Repeat EKG shows resolution of ST segment depression, improvement in T-wave inversion, no significant changes. Pelvis CT from 10/09/19 read as no acute fracture or other abnormality, chronic degenerative changes. Head CTA read as no acute findings. Chest x-ray read as no evidence for acute cardiopulmonary abnormality. Transthoracic echocardiogram read as a left ventricular systolic function 65%, systolic function normal, wall thickness mildly increased, grade 1 diastolic dysfunction, no PFO, mild regurgitation of aortic valve, mild to trace mild tricuspid regurgitation, ascending aorta is mildly dilated, no previous echocardiogram. Brain MRI from 10/09/19 read as findings consistent with 3 acute foci of infarction involving left basal ganglia and subcortical white matter tracts in the left temporal lobe, chronic microvascular disease, no suspicious enhancing foci or post contrast changes. Venous Doppler study from 10/10/19 read as no acute findings, no evidence of deep vein thrombosis. Brain CT from 10/10/19 read as no acute intracranial abnormality, no acute change. Brain CT from 10/12/19 read as no acute intracranial abnormality. HOSPITAL COURSE: This is a brief summary of the patient's presentation. For more details, please see history and physical from Craig Nicolas DO on . In brief, the patient is a 79-year-old female with past medical history significant for the above who presented to the emergency department with up to 2 years of right- sided weakness in her lower extremity though she at different times she states that this lasted only 3 weeks and new onset right upper extremity weakness as well as a fall without passing out. The patient in the emergency department had a CT as above. The patient has slightly elevated troponin and was treated with nitro paste. The patient never had any chest pain. The patient was significantly hypertensive on admission. The patient's EKGs showed some ischemic changes as above. The patient was seen in consultation by Dr. Garg of Cardiology, who recommended outpatient stress test as well as beta dc, statin, aspirin. The patient's troponin peaked at 0.99 and then trended down. The patient had several episodes of transient worsening in her weakness throughout her hospitalization believed to be related to relative hypotension and permissive hypertension was allowed. The patient was seen in consultation by Dr. Dylan Teran, who believed this was related to thrombotic stroke and not an embolic source. The patient had negative PFO and negative lower extremity Doppler. The patient was not anticoagulated for her possible NSTEMI due to concern for Hemorrhagic transformation of her stroke. The patient had no arrhythmias or telemetry while inpatient indicating a possible cardioembolic source and her echo was not consistent with predisposition to cardioembolic sources. The patient was started on aspirin, Plavix, Lipitor. The patient was found to have low B12 level and she was started on low-dose vitamin B12 supplementation. The patient was stable enough for discharge to [facility] on 10/15/19. PHYSICAL EXAMINATION ON DAY OF DISCHARGE: General: The patient is a 79-year- old female who appears stated age and sitting comfortably in bed, in no acute distress. Vital Signs: Temperature 97.4, pulse 58, respiratory rate 16, oxygen saturation 90% on room air, blood pressure 140/63. HEENT: Head normocephalic, atraumatic. Sclerae anicteric. No conjunctival injection. Nasal mucosa moist. Oral mucosa moist. No pharyngeal erythema, discharge or exudate. Neck: Supple, nontender. No lymphadenopathy. No carotid bruit auscultated. No JVD. Cardiac: Regular rate and rhythm. No clicks, murmurs, gallops, or rubs. Pulses 2+ in bilateral dorsalis pedis, posterior tibialis, and radial areas. Respiratory: Clear to auscultation bilaterally. No wheezes, rales, or rhonchi. Good air exchange bilaterally. Abdomen: Soft, nontender, nondistended. Bowel sounds present, normoactive in all 4 quadrants. No hepatospleno-megaly. No abdominal bruits auscultated, patchy reflux. Genitourinary: No suprapubic tenderness or CVA tenderness. Skin: Clean, dry, and intact. No rashes. Neuro: 3/5 strength in the right upper and lower extremities distally and proximally. No focal deficits. Alert and oriented x3. Gait: Not assessed. Psychiatric: Pleasant and cooperative. DISCHARGE PLAN BY PROBLEM: 1. Acute CVA with right-sided weakness. The patient appears to have 3 right- side strokes likely leading to her time course for her right-sided deficits. Neurology consultation does not believe this is related to a cardioembolic source despite the multifocal nature. We will start her on aspirin and Plavix for 30 days and then be transitioned to aspirin only 81 mg daily. The patient has been having permissive hypertension, but now she will be treated to goal. If the patient has recurrent neurologic deficit she should come back to the hospital if the patient has new strokes. Long-term event monitor should be considered for consideration of cardioembolic source. The patient had no evidence of arrhythmia on her telemetry while inpatient. 2. Hypertension. Continue with mild permissive hypertension, but begin to treat to goal. The patient will be started no metoprolol succinate. The patient's valsartan will be cut in half to 160 mg daily and her hydrochlorothiazide will be held, this should be resumed as indicated for her blood pressure in the outpatient setting. 3. Hyperlipidemia. The patient's LDL cholesterol was 147. The patient will be started on high intensity statin therapy and this should be escalated as needed. The patient should have followup per screening guidelines. 4. Hypercalcemia. The patient is mildly hypercalcemic throughout her hospitalization. The etiology of this is unclear except and that she also had a normal phosphorus. The patient is not on vitamin D supplementation. The patient has no known history of hyperthyroidism, hyperparathyroidism or malignancy. A PTH level has been drawn, however, this likely will not be available before the patient leaves the hospital. She will be followed up on by her outpatient provider and further evaluation of her hypercalcemia should be undertaken. 5. Elevated troponin, NSTEMI. The patient had an elevated troponin without chest pain while inpatient. The patient seen in consultation by Dr. Garg, who recommended an outpatient stress test. The patient should follow up with Dr. Garg in the outpatient setting for a stress test. The patient had no wall motion abnormalities. The patient is on a statin, aspirin, Plavix, and blood pressure control at this time. DISPOSITION: [facility]. CONDITION: Stable TIME SPENT: Approximately 60 minutes was spent on this discharge of this patient, 30 of which spent [id number] with the patient obtaining history and physical and discussing the treatment plan. COTY CONTRERAS [id number]/[facility] #: [id number] ANDRAE
[2019-10-15] MEDS: Chlorhexidine MOUTHWASH 0.12%* 15 ML UDC SWISH SPIT SCH (13:17)
[2019-10-15 15:33] VITALS: BP 146/49
== END 2019-10-15 14:20 | DRG 64 ==
LOC: ED 16:29 → MEDTELE 22:10
PROVIDERS: ADMIT Family Medicine; ATTEND Internal Medicine
DX: I63.89 Other cerebral infarction (principal); I21.4 Non-ST elevation (NSTEMI) myocardial infarction; G81.91 Hemiplegia, unspecified affecting right dominant side; I10 Essential (primary) hypertension; E78.5 Hyperlipidemia, unspecified; R29.810 Facial weakness; R47.1 Dysarthria and anarthria; E53.8 Deficiency of other specified B group vitamins; E87.6 Hypokalemia; R29.6 Repeated falls; R29.706 NIHSS score 6; R19.8 Other specified symptoms and signs involving the digestive system and abdomen; Z79.899 Other long term (current) drug therapy; Z87.891 Personal history of nicotine dependence; Z28.21 Immunization not carried out because of patient refusal
CPT/HCPCS: 36415; 70450; 70496; 70498; 70553; 71045; 72192; 80048; 80053; 80061; 81003; 81015; 82607; 83036; 83605; 83735; 83970; 84100; 84443; 84484; 85025; 85610; 85730; 87077; 87086; 93005; 93306; 93970; 97112; 99285; A9270-GY; A9579; C8929; J1650; Q9967